=== PATIENT | male | born 1990 | race African-American/Black ===

== ENCOUNTER 2022-09-26 19:56 | Emergency (ER) | payer MEDICAID ==
[~2022-09-26] VITALS: Ht 190.5 cm; Wt 102.0 kg
[2022-09-26 19:59] VITALS: BP 142/66; TEMP 97.7; O2SAT 96
[2022-09-26 20:01] VITALS: PULSE 86; RESP 15
[2022-09-26] MEDS ORDERED: IBUP-2029 MT (21:17)
[2022-09-26] MEDS ORDERED: DEXAMETHASONE 4MG TABLET PO ONE (21:30)
[2022-09-26] MEDS ORDERED: DEXAMETHASONE 6MG TABLET PO NR (21:30)
== END 2022-09-26 22:17 | disposition home or self-care (01) ==
LOC: ER 19:56
DX: J02.9 Acute pharyngitis, unspecified (principal)
CPT/HCPCS: 99283; J8540